=== PATIENT | female | born 1965 | race Caucasian/White ===

== ENCOUNTER → 2017-12-26 09:37 | Outpatient (CLI) | payer OTHER, SELFPAY ==
--- NOTE | 2017-12-26 | DI.MG.S_ITS ---
BILATERAL DIGITAL SCREENING MAMMOGRAM 3D/2D WITH CAD: 12/26/2017 CLINICAL: Routine screening. Family history of breast cancer. Comparison is made to exams dated: 10/21/2016 mammogram, 10/05/2015 mammogram, and 08/10/2014 mammogram - [facility]. The tissue of both breasts is heterogeneously dense. This may lower the sensitivity of mammography. Current study was also evaluated with a Computer Aided Detection (CAD) system. No significant masses, calcifications, or other findings are seen in either breast. There has been no significant interval change. IMPRESSION: NEGATIVE There is no mammographic evidence of malignancy. A 1 year screening mammogram is recommended. This exam was interpreted at Station ID: [id number]. NOTE: For mammograms, a report in lay terms will be sent to the patient. Approximately 15% of breast malignancies will not be visualized mammographically. In the management of a palpable breast mass, a negative mammogram must not discourage biopsy of a clinically suspicious lesion. Electronically Signed By: Jen price/mike:12/26/2017 10:58:13 letter sent: Normal Exam ACR BI-RADS Category 1: Negative [id number]
== END ==
PROVIDERS: Visit Provider Family Medicine
DX: Z12.31 Encounter for screening mammogram for malignant neoplasm of breast (principal)
CPT/HCPCS: 77063; 77067

== ENCOUNTER → 2018-09-23 10:58 | Outpatient (CLI) | payer OTHER, SELFPAY ==
--- NOTE | 2018-10-10 08:37 | PM.CARDMON.1 ---
Weekend Caregiver Report Referral & Results Date Patient Seen: 09/23/18 Requesting provider: Lisandro Vicente Indication: Palpitations Duration of monitoring (days): 5 Diary information: There were no diary entries There 14 patient triggered events associated with sinus rhythm, PACs, PVCs, and an episode of SVT, however this was only 4 beats in duration Data: Minimum heart rate identified was 52 beats per minute at 03:51 on 09/24/2018 Maximum sinus heart rate was 153 beats per minute at 17:40 on 09/27/2018 Maximum overall heart rate was 156 beats per minute at 06:38 on 09/24/2018 associated with either SVT or accelerated atrial tachycardia that was 4 beats in duration and marked by patient Patient had 4 other runs of an SVT or atrial tachycardia the longest was 5 beats at a rate of 108 beats per minute suggesting atrial tachycardia rather than SVT Less than 1% of identified beats or either ventricular supraventricular ectopic in origin Impression: Essentially unremarkable surveillance monitor No clear etiology for reported symptoms of palpitations identified beyond simple PACs and PVCs. Patient may have some accelerated atrial rhythms as well as above. Clinical correlation suggested
--- NOTE | 2018-10-10 08:40 | P.HOLT.S_ITS ---
[facility]er [employer]ush Man Report Referral & Results Date Patient Seen: 09/23/18 Requesting provider: Lisandro Vicente Indication: Palpitations Duration of monitoring (days): 5 Diary information: There were no diary entries There 14 patient triggered events associated with sinus rhythm, PACs, PVCs, and an episode of SVT, however this was only 4 beats in duration Data: Minimum heart rate identified was 52 beats per minute at 03:51 on 09/24/2018 Maximum sinus heart rate was 153 beats per minute at 17:40 on 09/27/2018 Maximum overall heart rate was 156 beats per minute at 06:38 on 09/24/2018 associated with either SVT or accelerated atrial tachycardia that was 4 beats in duration and marked by patient Patient had 4 other runs of an SVT or atrial tachycardia the longest was 5 beats at a rate of 108 beats per minute suggesting atrial tachycardia rather than SVT Less than 1% of identified beats or either ventricular supraventricular ectopic in origin Impression: Essentially unremarkable quality assurance monitor body No clear etiology for reported symptoms of palpitations identified beyond simple PACs and PVCs. Patient may have some accelerated atrial rhythms as well as above. Clinical correlation suggested
== END ==
PROVIDERS: Visit Provider Family Medicine
DX: R00.2 Palpitations (principal)
CPT/HCPCS: 0296T; 0298T

== ENCOUNTER 2020-01-16 15:24 | Emergency (ER) | payer OTHER, SELFPAY ==
[2020-01-16 15:33] VITALS: BP 167/89; PULSE 92; RESP 18; TEMP 36.8; O2SAT 97; BMI 19.7
--- NOTE | 2020-01-16 15:37 | DI.RAD.S_ITS ---
PROCEDURE: XR KNEE LT 3V INDICATIONS: Knee pain TECHNIQUE: 3 views of the knee were acquired. COMPARISON: None. FINDINGS: Bones: No fractures or dislocations. No suspicious bony lesions. Mild tricompartmental periarticular osteophyte formation. Soft tissues: No joint effusion. No suspicious soft tissue calcifications. IMPRESSION: Osteoarthritis. No acute fracture. No osseous lesion. If symptoms and/or clinical suspicion for pathology persist, further assessment with repeat, or advanced imaging (e.g., CT, MRI, or bone scan) may be helpful for further assessment. Dictated by: Kelli Wong M.D. on 01/16/2020 at 15:53 Approved by: Kelli Wong M.D. on 01/16/2020 at 15:53
--- NOTE | 2020-01-16 17:07 | ED.LOWEXIN ---
HPI - Extremity Injury (Lower) <FRANKIE Escobar - Last Filed: 01/16/20 17:46> General Chief Complaint: Extremity Injury, Lower Stated Complaint: LEFT KNEE PAIN Time Seen by Provider: 01/16/20 16:27 Source: patient Mode of arrival: Ambulatory Limitations: no limitations History of Present Illness HPI Narrative: The patient is a 54-year-old female nonsmoker who states that she has history of injuries to bilateral knees who presents with a chief complaint of left knee pain. She states that she was crouching on Sunday and felt sudden pain in her left knee. She was crouching in order to do housework. She used some KT tape to help support her leg. She has not taken any Tylenol or Motrin. She states that she has history of injuries to both knees, though is unspecific and does not know what exact injury she has had. She states that she has a history of ?knee pain,but is not sure if she has had any specific injuries such as ACL etcetera. She denies any falls, states that started when she was crouched down on Sunday. New she stated she waited 5 days to come in as she thinks she needs an MRI, states that we which is taken x-ray. Related Data Previous Rx's Medication Instructions Recorded diclofenac sodium [Voltaren] 2 gram TOP QID PRN 7 Days #100 gram 01/16/20 lidocaine 1 patch TOP DAILY PRN #15 each 01/16/20 Allergies Allergy/AdvReac Type Severity Reaction Status Date / Time No Known Drug Allergies Allergy Verified 01/16/20 15:33 Review of Systems <FRANKIE Escobar - Last Filed: 01/16/20 17:46> Review of Systems Narrative: GENERAL: Denies chills, fatigue, malaise, fever, sweats. HEENT: Denies sinus pain, ear pain, sore throat, difficulty swallowing, dizziness. RESPIRATORY: Denies dyspnea, cough, wheezing, hemoptysis, sputum. CARDIOVASCULAR: Denies chest pain, palpitations, orthopnea, edema, GASTROINTESTINAL: Denies nausea, vomiting, abdominal pain, diarrhea, constipation, melena. : Denies dysuria, frequency, incontinence, hematuria, urinary retention. MUSCULOSKELETAL: See HPI SKIN: Denies rash, skin lesions, or other NEUROLOGIC: Denies weakness, headache, numbness, change in speech, confusion, seizures, incoordination. PSYCHIATRIC: No concerning psychosocial issues. 12 point review of systems is negative except for those stated above Patient History <FRANKIE Escobar - Last Filed: 01/16/20 17:46> Social History Smoking Status: Never smoker Smoking Status: Never smoker Substance Use Type: does not use Exam <FRANKIE Escobar - Last Filed: 01/16/20 17:46> Narrative Exam Narrative: GENERAL: This is a well-nourished, well-developed patient, no acute distress HEAD: Atraumatic. Normocephalic. No temporal or scalp tenderness. EYES: Pupils equal round and reactive. Extraocular motions intact. No scleral icterus. No injection or drainage. ENT: Nose without bleeding, purulent drainage or septal hematoma. Wearing mask. Airway patent. NECK: Trachea midline. No JVD or lymphadenopathy. Supple, nontender, no meningeal signs. CARDIOVASCULAR: Regular rate and rhythm RESPIRATORY: No cough. No increased respiratory effort. No accessory muscle use EXTREMITIES: Pain to palpation noted medial aspect left knee, positive pedal pulses bilaterally. Able to fully flex and extend left knee, able to lift left leg off stretcher. Negative anterior posterior drawer. No instability felt on varus or valgus. No catching on Chad's. Slight swelling noted on medial aspect of left knee. NEURO: AOx3. SKIN: No rash or erythema on visible skin. No erythema rash laceration or abrasion noted on left knee Initial Vital Signs Initial Vital Signs: Vital Signs Temperature 98.2 F 01/16/20 15:33 Pulse Rate 92 H 01/16/20 15:33 Respiratory Rate 18 01/16/20 15:33 Blood Pressure 167/89 H 01/16/20 15:33 Pulse Oximetry 97 01/16/20 15:33 <Love Orlando DO - Last Filed: 01/21/20 07:28> Initial Vital Signs Initial Vital Signs: Vital Signs Temperature 98.2 F 01/16/20 15:33 Pulse Rate 92 H 01/16/20 15:33 Respiratory Rate 18 01/16/20 15:33 Blood Pressure 167/89 H 01/16/20 15:33 Pulse Oximetry 97 01/16/20 15:33 Scores <FRANKIE Escobar - Last Filed: 01/16/20 17:46> GCS [place] coma scale eye opening: Spontaneous [place] coma scale verbal response: Orientated Laura coma scale motor response: Obey commands [place] coma scale total score: 15 Course <FRANKIE Escobar - Last Filed: 01/16/20 17:46> Orders Ordered: Discontinued Medications Lidocaine (Lidoderm) 1 each TOP NOW ONE Stop: 01/16/20 16:46 Last Admin: 01/16/20 17:13 Dose: 1 each Documented by: JUN Vital Signs Vital signs: Vital Signs - 8 hr 01/16/20 15:33 Temperature 98.2 F Pulse Rate 92 H Respiratory Rate 18 Blood Pressure 167/89 H Pulse Oximetry 97 <Love Orlando DO - Last Filed: 01/21/20 07:28> Orders Ordered: Discontinued Medications Lidocaine (Lidoderm) 1 each TOP NOW ONE Stop: 01/16/20 16:46 Last Admin: 01/16/20 17:13 Dose: 1 each Documented by: JUN Vital Signs Vital signs: Vital Signs - 8 hr 01/16/20 15:33 Temperature 98.2 F Pulse Rate 92 H Respiratory Rate 18 Blood Pressure 167/89 H Pulse Oximetry 97 MDM - Extremity Injury (Lower) <FRANKIE Escobar - Last Filed: 01/16/20 17:46> Imaging Data Extremity x-ray #1: Radiologist's Impression: [address] [place] [address] XRay Report Signed Patient: Mandy Blue EMR#: [id number] : 1965Acct:[id number] Age/Sex: 54 / FDate of Service: 01/16/20 Loc: ED Accession Number: [id number] Procedure: XR knee LT 3V Ordering Provider: Love Orlando D.O. PROCEDURE: XR KNEE LT 3V INDICATIONS: Knee pain TECHNIQUE: 3 views of the knee were acquired. COMPARISON: None. FINDINGS: Bones: No fractures or dislocations. No suspicious bony lesions. Mild tricompartmental periarticular osteophyte formation. Soft tissues: No joint effusion. No suspicious soft tissue calcifications. IMPRESSION: Osteoarthritis. No acute fracture. No osseous lesion. If symptoms and/or clinical suspicion for pathology persist, further assessment with repeat, or advanced imaging (e.g., CT, MRI, or bone scan) may be helpful for further assessment. Dictated by: Kelli Wong M.D. on 01/16/2020 at 15:53 Approved by: Kelli Wong M.D. on 01/16/2020 at 15:53 [facility] Narrative Medical decision making narrative: The patient is a 54-year-old female who presents with a chief complaint of left-sided knee pain since Sunday. She states she was crouched down, felt knee pain. She has negative x-rays, is neurovascularly intact. The patient has not taken any Tylenol, states that she does not want to ?take pain pills.I encouraged her to take Tylenol, as patient states that she has medication if she takes Motrin so we agreed to try Voltaren gel. I also sent a prescription of lidocaine patches in. Encouraged follow-up with primary care provider which she already has scheduled. She is neurovascularly intact throughout her stay in the emergency department. The patient may benefit from physical therapy given osteoarthritis on x-ray, may benefit from further imaging such as MRI. The patient appears to be discouraged that I cannot do a extremity MRI in the emergency department, encouraged to follow up with primary care provider in the next few days. I discussed that I cannot guarantee that on MRI with deep be done as she would need to have a repeat evaluation. The patient may benefit from further imaging given her chronic knee pain, would also benefit from physical therapy, possibly orthopedic referral. Patient has no questions or concerns upon discharge and states understanding return precautions as well as follow-up care. Discharge Plan Departure Patient Disposition: Home Clinical Impression: Acute knee pain Qualifiers: Laterality: left Qualified Code(s): M25.562 - Pain in left knee Discharge Date/Time: 01/16/20 17:42 Instructions: How To Perform RICE (Rest, Ice, Compress, Elevate), DI for Knee Pain, How to Apply an Elastic Wrap on Knee Activity Restrictions/Additional Instructions: As I discussed, your x-ray shows no acute fracture. This does not rule out a soft tissue injury such as a ligament or tendon injury. It is important that you follow up with primary care provider, especially if worsening or no improvement. There can be fractures that did not show up on initial x-ray. As discussed, please follow-up with primary care provider in the next few days. I believe that you would likely benefit from further evaluation, likely physical therapy, further imaging such as MRI and orthopedic referral I suggest continued rest ice compression elevation as well as [id number] pain medications as needed and able Please come back to emergency department for any acute concerns Prescriptions: New lidocaine 5 % adhesive patch,medicated 1 patch TOP DAILY PRN (Reason: pain) Qty: 15 RF: 0 diclofenac sodium [Voltaren] 1 % gel 2 gram TOP QID PRN (Reason: pain ) 7 Days Qty: 100 RF: 0 Referrals: Smiley King DO [Non-Staff] - <Love Orlando DO - Last Filed: 01/21/20 07:28> Cosign ED Attending Cosignature Attestation: I was immediately available in the department for consultation. Documentation has been reviewed. I agree with assessment and plan.
[2020-01-16] MEDS: LIDOCAINE PATCH 1 EACH ADH..PATCH TOP (17:13)
== END 2020-01-16 17:42 | disposition home or self-care (01) ==
PROVIDERS: Emergency Provider Nurse Practitioner Family
DX: M25.562 Pain in left knee (principal)
CPT/HCPCS: 73562; 99282; 99283

== ENCOUNTER 2022-06-24 20:58 | Emergency (ER) | payer OTHER, SELFPAY ==
[2022-06-24 21:01] VITALS: BP 206/90; PULSE 105; RESP 18; TEMP 37; O2SAT 99; BMI 19.7
[2022-06-24] MEDS: ONDANSETRON 4 MG/2 ML INJ IV (21:07)
[2022-06-24 21:51] LABS: Add Manual Diff / Slide Review NO; Basophils Absolute Auto 100 /uL (0-100); Basophils Percent Auto 0.9 % (0-2); Eosinophils Absolute Auto 200 /uL (0-450); Eosinophils Percent Auto 3.5 % (2-4); Hematocrit 32.2 % (36-46); Hemoglobin 11.6 g/dL (12.0-16.0); Lymphocytes Absolute Auto 1500 /uL (1100-4500); Lymphocytes Percent Auto 25.7 % (25-40); Mean Corpuscular Hemoglobin 31.2 PG (26-34); Mean Corpuscular Volume 86.6 fL (80-100); Monocytes Absolute Auto 300 /uL (0-900); Monocytes Percent Auto 5.3 % (3-14); Neutrophils Absolute Auto 3700 /uL (1500-7000); Neutrophils Percent Auto 64.6 % (50-75); Platelet Count 227 X10^3/uL (150-400); Red Blood Cell Count 3.72 X10^6/uL (4.0-5.2); Red Cell Distribution Width 13.4 % (11.6-14.8); White Blood Cell Count 5.7 X10^3/uL (4.5-11.0)
--- NOTE | 2022-06-24 21:59 | DI.CT.S_ITS ---
PROCEDURE: CT KIDNEY URETER BLADDER (KUB) INDICATIONS: flank pain, hematuria TECHNIQUE: Axial sections were acquired from the lung bases to the pubic symphysis. Coronal and sagittal reformats were performed. For radiation dose reduction, the following was used: automated exposure control, adjustment of mA and/or kV according to patient size. COMPARISON: None. FINDINGS: Image quality: Excellent. Lung bases: Unremarkable. Heart: No significant findings. URINARY: Right Kidney: No stones or hydronephrosis. Right Ureter: No hydroureter. Left Kidney: A 2 x 3 mm mid kidney collecting system calculus is nonobstructive but there is moderate generalized left-sided hydronephrosis. Left Ureter: Hydroureter on the left extends from the renal pelvis to the middle 3rd of the left ureter where an impacted 5 x 6 mm calculus measuring 1016 Hounsfield units is present. This is located approximately at the level of the left iliac crest. No additional calculus more inferiorly is seen. Bladder: Normal wall thickness. No stones. ABDOMEN: Liver: Unremarkable. Gallbladder: Unremarkable. Biliary ducts: Unremarkable. Pancreas: Unremarkable. Spleen: Unremarkable. Adrenal Glands: Unremarkable. Stomach and Bowel: Stomach, small bowel loops, and colon are unremarkable. Peritoneum: No abnormal intraperitoneal fluid. No free air. Ventral Wall: No hernia. Abdominal Nodes: No enlarged retroperitoneal or mesenteric lymph nodes. Vessels: Aorta and inferior vena cava are normal in size. PELVIS: Pelvic Organs: Unremarkable. Pelvic Nodes: Unremarkable. Miscellaneous: No inguinal hernias are seen. Bones: Unremarkable. IMPRESSION: 5 x 6 mm impacted high density left middle 3rd ureteral stone causing moderate hydronephrosis and hydroureter to that level. An additional left-sided urinary tract stone is present measuring only 2 x 3 mm within the collecting system of the left kidney, which itself is nonobstructive. Dictated by: Chandu Moscoso M.D. on 06/24/2022 at 22:27 Approved by: Chandu Moscoso M.D. on 06/24/2022 at 22:31
[2022-06-24 22:00] LABS: Alanine Aminotransferase 28 IU/L (<35); Albumin 4.7 g/dL (3.5-5.0); Albumin Globulin Ratio 1.6 (1.0-2.8); Alkaline Phosphatase 75 U/L (38-126); Aspartate Aminotransferase 33 IU/L (14-36); BUN Creatinine Ratio 27.1 (6-22); Bilirubin Total 0.6 mg/dL (0.2-1.3); Blood Urea Nitrogen 19 mg/dL (7-17); Calcium 9.2 mg/dL (8.4-10.2); Carbon Dioxide 26 mmol/L (22-32); Chloride 104 mmol/L (98-107); Estimated Glomerular Filt Rate > 60 mL/min (>60); Glucose 126 mg/dL (70-100); HEMOLYSIS < 15 (0-50); Lipase 198 U/L (23-300); Potassium 3.2 mmol/L (3.4-5.1); Sodium 141 mmol/L (137-145); Total Protein 7.7 g/dL (6.3-8.2)
[2022-06-24] MEDS: KETOROLAC 30 MG/ML VIAL 15 MG IV (22:03)
--- NOTE | 2022-06-24 22:27 | ED_ITS ---
HPI - Abdominal Pain General Chief Complaint: Abdominal Pain Stated Complaint: pain in lt side back, vomiting,bloated abd Time Seen by Provider: 06/24/22 21:04 Source: patient Mode of arrival: Ambulatory History of Present Illness HPI narrative: 57-year-old female nonsmoker with noncontributory medical history presents with her in the chief complaint of a relatively sudden onset left side back pain over the course of the day. It came on suddenly and has started radiating around her left flank. She states there is no obvious provocation or palliation of her pain and it seems to come in waves without any rhyme or reason. She is had associated nausea and vomiting that seemed to be associated with intensity of pain. She denies any fever or chills. She is not dizzy nor weak or lightheaded and denies chest pain, shortness of breath or cough. She denies any change in bowel habits such as constipation or diarrhea and has no obvious dysuria, frequency or urgency Related Data Previous Rx's Medication Instructions Recorded lidocaine 5 % topical patch 1 patch topical DAILY PRN pain #15 01/16/20 ea hydrocodone 5 mg-acetaminophen 325 1 tab PO Q4-6H PRN pain #10 tabs 06/24/22 mg tablet ketorolac 10 mg tablet 10 mg PO Q6H PRN pain #14 tabs 06/24/22 ondansetron 4 mg disintegrating 4 mg PO TID-QID PRN nausea and 06/24/22 tablet vomiting #10 tabs tamsulosin 0.4 mg capsule (Flomax) 0.4 mg PO DAILY #30 caps 06/24/22 Allergies Allergy/AdvReac Type Severity Reaction Status Date / Time No Known Drug Allergies Allergy Verified 01/16/20 15:33 Review of Systems Review of Systems Narrative: GENERAL: Denies chills, fatigue, malaise, fever, sweats. HEENT: Denies sinus pain, ear pain, sore throat, difficulty swallowing, dizziness. RESPIRATORY: Denies dyspnea, cough, wheezing, hemoptysis, sputum. CARDIOVASCULAR: Denies chest pain, palpitations, orthopnea, edema, GASTROINTESTINAL: Denies nausea, vomiting, abdominal pain, diarrhea, constipation, melena. : See HPI MUSCULOSKELETAL: denies weakness, joint pain, or bony pain SKIN: Denies rash, skin lesions, or other NEUROLOGIC: Denies weakness, headache, numbness, change in speech, confusion, seizures, incoordination. PSYCHIATRIC: No concerning psychosocial issues. 12 point review of systems is negative except for those stated above Patient History Social History Smoking Status: Never smoker Smoking Status: Never smoker Substance Use Type: does not use Exam Narrative Exam Narrative: GENERAL: [57] year old patient appears stated age. Well-developed patient, in obvious significant pain, pacing and writhing HEAD: Atraumatic. Normocephalic. EYES: Pupils equal round and reactive. Extraocular motions intact. No scleral icterus. No injection or drainage. ENT: Nose without bleeding, purulent drainage. Throat without erythema, tonsillar hypertrophy or exudate. Airway patent. NECK: Trachea midline. Non tender CARDIOVASCULAR: Regular rate and rhythm without murmurs, gallops, or rubs. RESPIRATORY: Clear to auscultation. Breath sounds equal bilaterally. No wheezes, rales, or rhonchi. GASTROINTESTINAL: Abdomen soft, non-tender, nondistended. EXTREMITIES: No edema or joint tenderness. BACK: Nontender without deformity or crepitance. No flank tenderness. NEURO: AOx3. SKIN: No rash or erythema of visible areas Initial Vital Signs Initial Vital Signs: Vital Signs Temperature 98.6 F 06/24/22 21:01 Pulse Rate 105 H 06/24/22 21:01 Respiratory Rate 18 06/24/22 21:01 Blood Pressure 206/90 H 06/24/22 21:01 Pulse Oximetry 99 06/24/22 21:01 Oxygen Delivery Method 06/24/22 21:01 Course Orders Ordered: Discontinued Medications Hydrocodone Bitart/Acetaminophen (Hydrocodone/Acet 5/325 Prepack) 1 bottle MISC SEEINSTR ONE Stop: 06/24/22 22:53 Last Admin: 06/24/22 23:19 Dose: 1 bottle Documented By: ALBERTO Hydromorphone HCl (Hydromorphone 0.5 Mg Inj) 0.5 mg IV NOW ONE Stop: 06/24/22 22:19 Last Admin: 06/24/22 22:30 Dose: 0.5 mg Documented By: RACHEL Sodium Chloride (Normal Saline 0.9%) 1,000 mls @ 1,000 mls/hr IV BOLUS ONE Stop: 06/24/22 23:15 Last Infusion: 06/24/22 23:27 Dose: 0 mls/hr Documented By: Admin: 06/24/22 22:30 Dose: 1,000 mls/hr Documented By: RACHEL Ketorolac Tromethamine (Ketorolac 30 Mg/Ml Vial) 15 mg IV NOW ONE Stop: 06/24/22 22:00 Last Admin: 06/24/22 22:03 Dose: 15 mg Documented By: ALBERTO Ondansetron HCl (Ondansetron 4 Mg/2 Ml Inj) 4 mg IV NOW PRN PRN Reason: Nausea And Vomiting Last Admin: 06/24/22 21:07 Dose: 4 mg Documented By: ALBERTO Ondansetron HCl (Ondansetron 4 Mg Odt) 4 mg SL NOW ONE Stop: 06/24/22 22:53 Last Admin: 06/24/22 23:19 Dose: 4 mg Documented By: ALBERTO Reevaluation(s) Reevaluation #1: Patient does have some improvement with Toradol, however as the pain comes back she requests additional medications at which point Dilaudid has added Vital Signs Vital signs: Vital Signs - 8 hr 06/24/22 21:01 Temperature 98.6 F Pulse Rate 105 H Respiratory Rate 18 Blood Pressure 206/90 H Pulse Oximetry 99 Oxygen Delivery Method Room Air MDM - Abdominal Pain Lab Data Result diagrams: 06/24/22 21:22 06/24/22 21:22 Labs: Lab Results 06/24/22 06/24/22 06/24/22 Range/Units 21:22 21:22 21:35 WBC 5.7 (4.5-11.0) X10^3/uL RBC 3.72 L (4.0-5.2) X10^6/uL Hgb 11.6 L (12.0-16.0) g/dL Hct 32.2 L (36-46) % MCV 86.6 (80-100) fL MCH 31.2 (26-34) PG MCHC 36.0 (30-36) % RDW 13.4 (11.6-14.8) % Plt Count 227 (150-400) X10^3/uL Neut % (Auto) 64.6 (50-75) % Lymph % (Auto) 25.7 (25-40) % [place] % (Auto) 5.3 (3-14) % Eos % (Auto) 3.5 (2-4) % Baso % (Auto) 0.9 (0-2) % Neut # (Auto) 3700 (2401-0509) /uL Lymph # (Auto) 1500 (8656-8964) /uL [place] # (Auto) 300 (0-900) /uL Eos # (Auto) 200 (0-450) /uL Baso # (Auto) 100 (0-100) /uL Sodium 141 (137-145) mmol/L Potassium 3.2 L (3.4-5.1) mmol/L Chloride 104 (98-107) mmol/L Carbon Dioxide 26 (22-32) mmol/L BUN 19 H (7-17) mg/dL Creatinine 0.70 (0.52-1.04) mg/dL Estimated GFR > 60 (>60) mL/min BUN/Creatinine Ratio 27.1 H (6-22) Glucose 126 H (70-100) mg/dL Calcium 9.2 (8.4-10.2) mg/dL Total Bilirubin 0.6 (0.2-1.3) mg/dL AST 33 (14-36) IU/L ALT 28 (<35) IU/L Alkaline Phosphatase 75 (38-126) U/L Total Protein 7.7 (6.3-8.2) g/dL Albumin 4.7 (3.5-5.0) g/dL Globulin 3.0 (1.7-4.1) g/dL Albumin/Globulin Ratio 1.6 (1.0-2.8) Lipase 198 (23-300) U/L Urine RBC 1-5/hpf (0-5/HPF) Urine WBC None seen (0-5/HPF) Amorphous Sediment 4+ Urine Bacteria None seen (None) Ur Culture Indicated? Cult not indicated Point of care testing: Urine Dip Bedside Urine Glucose Negative Bedside Urine Bilirubin - Negative Bedside Urine Ketone - Negative Urine Specific [place] 1.015 Bedside Urine Occult Blood ++ Bedside Urine pH 7 Bedside Urine Protein - Negative Bedside Urine Urobilinogen - Negative Bedside Urine Nitrite - Negative Bedside Urine Leukocytes - Negative Esterase MDM Narrative Medical decision making narrative: [57 female with sudden onset colicky left flank pain] Multiple etiologies for patient's symptoms considered including, but not limited to: [Kidney stone, pyelonephritis, musculoskeletal, bowel obstruction versus other] Prior Charts reviewed: Including prior emergency department visit for knee pain Labs reviewed and interpreted by myself: Largely reassuring and absent of any signs of sepsis. No elevated white blood cell count or significant left shift. She does have a very slight decrease in potassium. No evidence of renal failure or signs of infection in the urine. Imaging reviewed: 5 x 6 mm stone in the mid ureter with signs of hydronephrosis Patient presents with rather classic signs of kidney stone, she has significant if not complete resolution of symptoms with above-stated therapies. She has no signs of sepsis, pain is well controlled, she is tolerating orals, shows no sign of infection or alteration in kidney function. Patient's symptoms improved over duration of stay with above-stated therapies. Findings and discharge diagnosis discussed with patient/family followed by verbalization of understanding Return precautions discussed with patient/family whom verbalize understanding of diagnosis and plan Discharge Plan Departure Patient Disposition: Home Clinical Impression: Calculus, kidney Instructions: DI for Kidney Stones Activity Restrictions/Additional Instructions: *You have been diagnosed with [left-sided kidney stone with hydronephrosis] *What to do: *Please continue to take your regular medications as directed. [x ] New medication prescriptions sent to your pharmacy: [[facility] in [place] ] [ ] New medication written as a paper prescription [ ] No new medications given *Please follow up with your primary care provider in 2-3 days, call for an appointment. Let them know you were seen in the Emergency Department and that we ask that you be seen in follow up. We will electronically transmit a record of today's note if your PCP is in our system as we discussed I have also given you contact information for * as we have discussed I have also given you contact information for local Urology and have electronically transmitted a copy of today's note. Please call their office, let them know you were seen in the emergency department and that we would like you seen in follow-up *If you do not have a primary care provider please contact the [facility] Resource line at [phone]. They will ask some questions about your medical history and help get you set up with a doctor in the community. *Return to Emergency Department if you should have any new, worsening or concerning symptoms, such as [fever greater than 101 F, shaking chills, worsening pain, persistent vomiting or other bothersome symptoms] Prescriptions: New hydrocodone-acetaminophen 5-325 mg tablet 1 tab PO Q4-6H PRN (Reason: pain) Qty: 10 0RF ketorolac 10 mg tablet 10 mg PO Q6H PRN (Reason: pain) Qty: 14 0RF tamsulosin [Flomax] 0.4 mg capsule 0.4 mg PO DAILY Qty: 30 0RF ondansetron 4 mg tablet,disintegrating 4 mg PO TID-QID PRN (Reason: nausea and vomiting) Qty: 10 0RF No Action lidocaine 5 % adhesive patch,medicated 1 patch TOP DAILY PRN (Reason: pain) Qty: 15 0RF Rx Instructions: leave on most painful area for up to 12 hrs Referrals: Adán Agustin MD [Physician] - Stand Alone Forms: Patient Portal/API
[2022-06-24] MEDS: HYDROMORPHONE 0.5 MG INJ IV (22:30)
[2022-06-24] MEDS: SODIUM CHLORIDE 0.9% 1,000 ML 1000 ML IV (22:30)
[2022-06-24 22:32] VITALS: PULSE 79; O2SAT 99
[2022-06-24 22:49] LABS: Amorphous Sediment Urine 4+; Bacteria Urine None Seen; Culture Indicated Urine Cult Not Indicated; RBC Urine 1-5/HPF (0-5/HPF); WBC Urine None Seen (0-5/HPF)
[2022-06-24 22:50] VITALS: BP 176/82; PULSE 82; O2SAT 100
[2022-06-24 22:53] VITALS: BP 142/78; PULSE 85; RESP 16; O2SAT 99
[2022-06-24 23:00] VITALS: BP 155/76; PULSE 79; O2SAT 100
[2022-06-24] MEDS: ONDANSETRON 4 MG ODT SL (23:19)
[2022-06-24] MEDS: HYDROCODONE/ACET 5/325 PREPACK 1 BOTTLE MISC (23:19)
== END 2022-06-24 23:30 | disposition home or self-care (01) ==
PROVIDERS: Emergency Provider Emergency Medicine
DX: N20.0 Calculus of kidney (principal)
CPT/HCPCS: 36415; 74176; 80053; 81003; 81015; 83690; 85025; 96361; 96374; 96375; 99284; J1170; J1885; J2405

== ENCOUNTER → 2023-04-30 10:24 | Outpatient (CLI) | payer OTHER, SELFPAY ==
[2023-04-30 11:55] LABS: TSH w/ Reflex to FT4 2.19 uIU/mL (0.47-4.68)
== END ==
PROVIDERS: Referring Provider Physician Assistant Medical; Visit Provider Physician Assistant Medical
DX: R53.83 Other fatigue (principal); R68.89 Other general symptoms and signs
CPT/HCPCS: 36415; 84443

== ENCOUNTER 2023-08-08 09:00 | Emergency (ER) | payer OTHER, SELFPAY ==
[2023-08-08] VITALS (13 sets, daily range): BP systolic 132–191; BP diastolic 66–94; PULSE 76–98; RESP 14–23; TEMP 36.6; O2SAT 99–100; BMI 19.8
[2023-08-08] MEDS: ONDANSETRON 4 MG/2 ML INJ IV (09:30)
[2023-08-08 09:50] LABS: Alanine Aminotransferase 23 IU/L (<35); Albumin 4.7 g/dL (3.5-5.0); Albumin Globulin Ratio 1.5 (1.0-2.8); Alkaline Phosphatase 70 U/L (38-126); Aspartate Aminotransferase 30 IU/L (14-36); BUN Creatinine Ratio 14.1 (6-22); Blood Urea Nitrogen 9 mg/dL (7-17); Calcium 9.3 mg/dL (8.4-10.2); Carbon Dioxide 26 mmol/L (22-32); Chloride 103 mmol/L (98-107); Estimated Glomerular Filt Rate > 60 mL/min (>60); Globulin 3.1 g/dL (1.7-4.1); Glucose 103 mg/dL (80-110); HEMOLYSIS < 15 (0-50); Lipase 155 U/L (23-300); Potassium 3.4 mmol/L (3.4-5.1); Sodium 139 mmol/L (137-145); Total Protein 7.8 g/dL (6.3-8.2)
[2023-08-08 09:52] LABS: Bacteria Urine None Seen; RBC Urine 10-30/HPF (0-5/HPF); Squamous Epithelial Cell Urine 1-5 /HPF (0-5/HPF); Urine Volume 10mL (spun); WBC Urine None Seen (0-5/HPF)
[2023-08-08 09:53] LABS: Culture Indicated Urine Cult Not Indicated
[2023-08-08 09:59] LABS: Add Manual Diff / Slide Review NO; Basophils Absolute Auto 100 /uL (0-100); Eosinophils Absolute Auto 200 /uL (0-450); Eosinophils Percent Auto 3.2 % (2-4); Hematocrit 34.4 % (36-46); Hemoglobin 12.5 g/dL (12.0-16.0); Lymphocytes Absolute Auto 1100 /uL (1100-4500); Mean Corpuscular HGB Conc 36.2 % (30-36); Mean Corpuscular Hemoglobin 31.1 PG (26-34); Mean Corpuscular Volume 85.7 fL (80-100); Monocytes Absolute Auto 300 /uL (0-900); Monocytes Percent Auto 6.7 % (3-14); Neutrophils Absolute Auto 3300 /uL (1500-7000); Neutrophils Percent Auto 66.1 % (50-75); Platelet Count 250 X10^3/uL (150-400); Red Blood Cell Count 4.01 X10^6/uL (4.0-5.2); Red Cell Distribution Width 13.2 % (11.6-14.8); White Blood Cell Count 4.9 X10^3/uL (4.5-11.0)
--- NOTE | 2023-08-08 11:32 | DI.CT.S_ITS ---
PROCEDURE: CT KIDNEY URETER BLADDER (KUB) INDICATIONS: left flank pain TECHNIQUE: Axial sections were acquired from the lung bases to the pubic symphysis. Coronal and sagittal reformats were performed. For radiation dose reduction, the following was used: automated exposure control, adjustment of mA and/or kV according to patient size. COMPARISON: [facility], CT, CT KIDNEY URETER BLADDER (KUB), 06/24/2022, 22:07. FINDINGS: Image quality: Diagnostic. Lower Chest: No significant findings. URINARY: Right Kidney: No stones or hydronephrosis. Right Ureter: No hydroureter. Left Kidney: There is moderate left hydronephrosis, as before. Nonobstructing 3 mm calculus within the left interpolar kidney is present, as before. Left Ureter: Mild diffuse left ureteral dilatation is present. There is a distal left ureteral calculus measuring 6 mm and 162 Hounsfield units. Bladder: Normal wall thickness. No stones. ABDOMEN: Liver: No contour-deforming solid mass. Gallbladder: No radiopaque gallstones or wall thickening. Biliary ducts: No biliary dilation. Pancreas: No ductal dilation. Spleen: Size is within normal limits. Adrenal Glands: No adrenal nodules. Stomach and Bowel: Normal colonic caliber, without significant wall thickening. Appendix is not seen. No evidence of appendicitis. Peritoneum: No abnormal intraperitoneal fluid. No free air. Ventral Wall: No hernia. Abdominal Nodes: No enlarged retroperitoneal or mesenteric lymph nodes. Vessels: Aorta and inferior vena cava are normal in size. PELVIS: Pelvic Organs: Unremarkable. Pelvic Nodes: Unremarkable. Miscellaneous: No inguinal hernias are seen. Bones: Unremarkable. IMPRESSION: 1. Migration of calculus to distal left ureter associated with mild left hydronephrosis. 2. Nonobstructing left renal calculus. 3. Appendix not seen. No evidence of appendicitis. Dictated by: Kelli Wong M.D. on 08/08/2023 at 12:39 Approved by: Kelli Wong M.D. on 08/08/2023 at 12:42
[2023-08-08] MEDS: HYDROMORPHONE 0.5 MG INJ IV ×2 (11:35→13:33)
[2023-08-08] MEDS: KETOROLAC 30 MG/ML VIAL 15 MG IV (11:35)
--- NOTE | 2023-08-08 12:04 | ED_ITS ---
HPI - Abdominal Pain General Chief Complaint: Abdominal Pain Stated Complaint: L side abd/back pain Time Seen by Provider: 08/08/23 10:09 Source: patient Mode of arrival: Ambulatory History of Present Illness HPI narrative: Patient 58-year-old female history of IBS, kidney stones presenting today with left-sided flank pain. Reports that it started getting much worse this morning. Feeling nauseous. She has had some left lower abdominal pain ongoing for about a year since her last kidney stone but it has been intensifying since her flank pain started. She has since received Toradol and Dilaudid in his overall feeling much better. She denies any fever chills nausea or vomiting. Related Data Home Medications Medication Instructions Recorded Confirmed Saccharomyces boulardii 250 mg 250 mg PO DAILY 03/08/23 04/30/23 capsule (Daily Probiotic (S. boulardii)) digestive enzymes 1 cap PO DAILY 03/08/23 04/30/23 glutamine 500 mg capsule 500 mg PO DAILY 03/08/23 04/30/23 (L-Glutamine) Previous Rx's Medication Instructions Recorded estradiol 0.01% (0.1 mg/gram) 0.5 appful vaginal DAILY #42.5 04/30/23 vaginal cream (Estrace) grams hydrocodone 5 mg-acetaminophen 325 1 tab PO Q6H PRN pain #20 tabs 08/08/23 mg tablet ketorolac 10 mg tablet 10 mg PO TID PRN pain #10 tabs 08/08/23 ondansetron 4 mg disintegrating 4 mg PO Q8H PRN nausea and 08/08/23 tablet vomiting #10 tabs tamsulosin 0.4 mg capsule (Flomax) 0.4 mg PO BEDTIME #10 caps 08/08/23 Allergies Allergy/AdvReac Type Severity Reaction Status Date / Time No Known Drug Allergies Allergy Verified 08/08/23 09:20 Patient History Medical History (Updated 08/08/23 @ 13:11 by Love Orlando DO) Cystocele with rectocele Deep dyspareunia Postmenopausal atrophic vaginitis Postmenopausal bleeding Hypertension Raynaud disease IBS (irritable bowel syndrome) Surgical History Hx of cataract surgery Hx of tonsillectomy Family History Mother Cancer Father Hypertension Stroke Heart disease Daughter Hypertension Stroke Heart disease Brother Hypertension Heart disease Son Hypertension Social History Smoking Status: Never smoker Smoking Status: Never smoker Substance Use Type: does not use Exam Initial Vital Signs Initial Vital Signs: Vital Signs Temperature 97.8 F 08/08/23 09:12 Pulse Rate 98 H 08/08/23 09:12 Respiratory Rate 18 08/08/23 09:12 Blood Pressure 191/91 H 08/08/23 09:12 Pulse Oximetry 100 08/08/23 09:12 Oxygen Delivery Method Room Air 08/08/23 09:12 GENERAL: Alert now well-appearing 58-year-old female and in no acute distress. HEENT: Head atraumatic,EOMI, pupils reactive, face symmetric, moist mucous membranes CARDIOVASCULAR: Regular rate and rhythm without murmurs, rubs or gallops. RESPIRATORY: Breath sounds equal bilaterally, no wheezes rales or rhonchi. ABDOMEN: Soft, minimally tender left lower quadrant no guarding no rebound no distress : left CVA tenderness EXTREMITIES: Normal range of motion, no clubbing or edema. Neurovascularly intact NEUROLOGICAL: Alert and oriented x4.Normal gait and speech. SKIN: Warm, dry, no laceration, no petechiae, no rashes or lesions. Course Orders Ordered: ED Orders 08/08/23 09:25 Complete Blood Count AUTO DIFF Stat Comprehensive Metabolic Panel Stat Lipase Stat 08/08/23 09:30 Urine Microscopic Stat 08/08/23 09:38 EKG-12 Lead Stat 08/08/23 11:32 CT kidney ureter bladder (KUB) Stat Discontinued Medications Hydromorphone HCl (Hydromorphone 0.5 Mg Inj) 0.5 mg IV NOW ONE Stop: 08/08/23 11:26 Last Admin: 08/08/23 11:35 Dose: 0.5 mg Documented By: ITA Hydromorphone HCl (Hydromorphone 0.5 Mg Inj) 0.5 mg IV NOW ONE Stop: 08/08/23 13:05 Last Admin: 08/08/23 13:33 Dose: 0.5 mg Documented By: ITA Ketorolac Tromethamine (Ketorolac 30 Mg/Ml Vial) 15 mg IV NOW ONE Stop: 08/08/23 11:26 Last Admin: 08/08/23 11:35 Dose: 15 mg Documented By: ITA Ondansetron HCl (Ondansetron 4 Mg/2 Ml Inj) 4 mg IV NOW PRN PRN Reason: Nausea And Vomiting Last Admin: 08/08/23 09:30 Dose: 4 mg Documented By: RB Ondansetron HCl (Ondansetron 4 Mg Odt) 4 mg PO NOW PRN PRN Reason: Nausea And Vomiting Vital Signs Vital signs: Vital Signs - 8 hr 08/08/23 09:12 08/08/23 11:15 08/08/23 11:18 Temperature 97.8 F Pulse Rate 98 H 94 H 87 Respiratory Rate 18 15 Blood Pressure 191/91 H Pulse Oximetry 100 100 100 Oxygen Delivery Method Room Air 08/08/23 11:18 08/08/23 11:30 08/08/23 11:30 Temperature Pulse Rate 87 Respiratory Rate 23 Blood Pressure 187/87 H 143/94 H Pulse Oximetry 100 Oxygen Delivery Method 08/08/23 11:39 08/08/23 11:39 08/08/23 11:45 Temperature Pulse Rate 81 76 Respiratory Rate 14 16 Blood Pressure 156/93 H Pulse Oximetry 100 100 Oxygen Delivery Method 08/08/23 11:45 08/08/23 11:58 08/08/23 11:58 Temperature Pulse Rate 83 Respiratory Rate 23 Blood Pressure 154/86 H 159/82 H Pulse Oximetry 100 Oxygen Delivery Method 08/08/23 12:00 08/08/23 12:00 08/08/23 12:15 Temperature Pulse Rate 78 Respiratory Rate 19 Blood Pressure 152/74 H 135/67 Pulse Oximetry 100 Oxygen Delivery Method 08/08/23 12:15 08/08/23 12:30 08/08/23 12:30 Temperature Pulse Rate 77 77 Respiratory Rate 14 15 Blood Pressure 132/66 Pulse Oximetry 99 100 Oxygen Delivery Method 08/08/23 12:45 08/08/23 12:45 08/08/23 13:00 Temperature Pulse Rate 76 87 Respiratory Rate 15 15 Blood Pressure 143/71 H Pulse Oximetry 100 99 Oxygen Delivery Method 08/08/23 13:00 08/08/23 13:15 08/08/23 13:15 Temperature Pulse Rate 76 Respiratory Rate 20 Blood Pressure 153/78 H 157/79 H Pulse Oximetry 100 Oxygen Delivery Method MDM - Abdominal Pain Lab Data 08/08/23 09:25 08/08/23 09:25 Labs: Lab Results 08/08/23 08/08/23 Range/Units 09:25 09:30 WBC 4.9 (4.5-11.0) X10^3/uL RBC 4.01 (4.0-5.2) X10^6/uL Hgb 12.5 (12.0-16.0) g/dL Hct 34.4 L (36-46) % MCV 85.7 (80-100) fL MCH 31.1 (26-34) PG MCHC 36.2 H (30-36) % RDW 13.2 (11.6-14.8) % Plt Count 250 (150-400) X10^3/uL Neut % (Auto) 66.1 (50-75) % Lymph % (Auto) 23.0 L (25-40) % [place] % (Auto) 6.7 (3-14) % Eos % (Auto) 3.2 (2-4) % Baso % (Auto) 1.0 (0-2) % Neut # (Auto) 3300 (5211-4512) /uL Lymph # (Auto) 1100 (7883-8951) /uL [place] # (Auto) 300 (0-900) /uL Eos # (Auto) 200 (0-450) /uL Baso # (Auto) 100 (0-100) /uL Sodium 139 (137-145) mmol/L Potassium 3.4 (3.4-5.1) mmol/L Chloride 103 (98-107) mmol/L Carbon Dioxide 26 (22-32) mmol/L BUN 9 (7-17) mg/dL Creatinine 0.64 (0.52-1.04) mg/dL Estimated GFR > 60 (>60) mL/min BUN/Creatinine Ratio 14.1 (6-22) Glucose 103 (80-110) mg/dL Calcium 9.3 (8.4-10.2) mg/dL Total Bilirubin 1.0 (0.2-1.3) mg/dL AST 30 (14-36) IU/L ALT 23 (<35) IU/L Alkaline Phosphatase 70 (38-126) U/L Total Protein 7.8 (6.3-8.2) g/dL Albumin 4.7 (3.5-5.0) g/dL Globulin 3.1 (1.7-4.1) g/dL Albumin/Globulin Ratio 1.5 (1.0-2.8) Lipase 155 (23-300) U/L Urine RBC 10-30/hpf H (0-5/HPF) Urine WBC None seen (0-5/HPF) Ur Squamous Epith Cells 1-5 /hpf (0-5/HPF) Urine Bacteria None seen (None) Ur Culture Indicated? Cult not indicated Vol Urine Centrifuged 10ml (spun) Point of care testing: Urine Dip Bedside Urine Glucose Negative Bedside Urine Bilirubin - Negative Bedside Urine Ketone - Negative Urine Specific [place] 1.025 Bedside Urine Occult Blood +++ Bedside Urine pH 5.5 Bedside Urine Protein - Negative Bedside Urine Urobilinogen - Negative Bedside Urine Nitrite - Negative Bedside Urine Leukocytes - Negative Esterase Imaging Data CT scan - abdomen/pelvis: Radiologist's Impression: PROCEDURE: CT KIDNEY URETER BLADDER (KUB) INDICATIONS: left flank pain TECHNIQUE: Axial sections were acquired from the lung bases to the pubic symphysis. Coronal and sagittal reformats were performed. For radiation dose reduction, the following was used: automated exposure control, adjustment of mA and/or kV according to patient size. COMPARISON: [facility], CT, CT KIDNEY URETER BLADDER (KUB), 06/24/2022, 22:07. FINDINGS: Image quality: Diagnostic. Lower Chest: No significant findings. URINARY: Right Kidney: No stones or hydronephrosis. Right Ureter: No hydroureter. Left Kidney: There is moderate left hydronephrosis, as before. Nonobstructing 3 mm calculus within the left interpolar kidney is present, as before. Left Ureter: Mild diffuse left ureteral dilatation is present. There is a distal left ureteral calculus measuring 6 mm and 162 Hounsfield units. Bladder: Normal wall thickness. No stones. ABDOMEN: Liver: No contour-deforming solid mass. Gallbladder: No radiopaque gallstones or wall thickening. Biliary ducts: No biliary dilation. Pancreas: No ductal dilation. Spleen: Size is within normal limits. Adrenal Glands: No adrenal nodules. Stomach and Bowel: Normal colonic caliber, without significant wall thickening. Appendix is not seen. No evidence of appendicitis. Peritoneum: No abnormal intraperitoneal fluid. No free air. Ventral Wall: No hernia. Abdominal Nodes: No enlarged retroperitoneal or mesenteric lymph nodes. Vessels: Aorta and inferior vena cava are normal in size. PELVIS: Pelvic Organs: Unremarkable. Pelvic Nodes: Unremarkable. Miscellaneous: No inguinal hernias are seen. Bones: Unremarkable. IMPRESSION: 1. Migration of calculus to distal left ureter associated with mild left hydronephrosis. 2. Nonobstructing left renal calculus. 3. Appendix not seen. No evidence of appendicitis. Dictated by: Kelli Wong M.D. on 08/08/2023 at 12:39 MDM Narrative Medical decision making narrative: Patient is 58-year-old female history of kidney stones and IV as presenting today with left-sided flank pain. She is got some left lower abdominal pain as well. Is doing much better after Dilaudid and Toradol Blood work has been reviewed no evidence of SABA or elevated WBC count. Urinalysis is clean without evidence of infection. CT does show 2 kidney stones 1 6 mm in the distal left ureter causing mild hydronephrosis and a 3 mm stone in the pole of the left kidney Patient is instructed to follow-up with urology given strict return precautions. All questions have been answered. She has previously had ketorolac at home for prior kidney stones is requesting an again. Discussed not combining it with Motrin. Initially forgot to send the ketorolac prescription but it was sent after discharge Discharge Plan Departure Patient Disposition: Home Clinical Impression: Kidney stone on left side Instructions: DI for Kidney Stones Activity Restrictions/Additional Instructions: *You have been diagnosed with left-sided kidney stone *What to do: At this time you have to kidney stones 1 in the kidney that is measuring 3 mm in 1 6 mm that is trying to pass. You will need to follow-up with urology. Please stay hydrated Strain your urine *Continue to take medications as directed Motrin 600 mg every 6 hours for [id number] pain Zofran 4 mg every 8 hours for nausea or vomiting Flomax 0.4 mg daily [place] 1-2 tablets every 6 hours if needed for severe *Follow up with your primary care provider in 2-3 days or call [phone] *Return to ER if you should have increasing pain, fever, vomiting or any new, worsening or concerning symptoms CONTROLLED SUBSTANCE DISCHARGE (Narcotoic/benzodiazepine/Flexeril/Phenergan) 1. You have been prescribed narcotic medications, it does have acetaminophen/Tylenol/paracetamol in it, DO NOT TAKE MORE THAN 4,00mg in 24 hours of Tylenol. TRAMADOL DOES NOT CONTAIN TYLENOL 2. Please understand that we cannot provide further refills of narcotics, benzodiazepines or controlled substances through the ED and her pain management will need to be through your provider. 3. While on these medications you cannot drive or operate heavy machinery. 4. You cannot sign legal documents or perform any duties such as this. 5. As long as you're taking opiate pain medications he should also be taking a stool softener such as Colace, Dulcolax, MiraLAX or prune juice, to help avoid constipation. Prescriptions: New hydrocodone-acetaminophen 5-325 mg tablet 1 tab PO Q6H PRN (Reason: pain) Qty: 20 0RF tamsulosin [Flomax] 0.4 mg capsule 0.4 mg PO BEDTIME Qty: 10 0RF ondansetron 4 mg tablet,disintegrating 4 mg PO Q8H PRN (Reason: nausea and vomiting) Qty: 10 0RF ketorolac 10 mg tablet 10 mg PO TID PRN (Reason: pain) Qty: 10 0RF No Action estradiol [Estrace] 0.01 % (0.1 mg/gram) cream 0.5 appful vaginal DAILY Qty: 42.5 3RF Rx Instructions: Apply daily for 14 days then twice weekly for maintenance L-Glutamine 500 mg capsule 500 mg PO DAILY Saccharomyces boulardii [Daily Probiotic (S. boulardii)] 250 mg capsule 250 mg PO DAILY digestive enzymes Capsule 1 cap PO DAILY Rx Instructions: administer with food; swallow whole; do not crush/chew/dissolve/break/cut Referrals: ProviderPietro [Primary Care Provider] - Stand Alone Forms: Patient Portal/API
== END 2023-08-08 13:41 | disposition home or self-care (01) ==
PROVIDERS: Emergency Provider Emergency Medicine
DX: N20.0 Calculus of kidney (principal)
CPT/HCPCS: 36415; 74176; 80053; 81003; 81015; 83690; 85025; 93005; 96374; 96375; 96376; 99284; J1170; J1885; J2405

== ENCOUNTER → 2023-09-27 12:43 | Outpatient (CLI) | payer OTHER, SELFPAY ==
--- NOTE | 2023-09-27 12:50 | DI.US.S_ITS ---
PROCEDURE: US PELVIC COMPLETE INDICATIONS: postmenopausal bleeding, dysparunia, bloating TECHNIQUE: Real-time scanning was performed of the pelvic organs, with image documentation. Additional endovaginal scanning was necessary due to incomplete visualization of the adnexal and endometrial structures by transabdominal scanning. COMPARISON: , CT, CT KIDNEY URETER BLADDER (KUB), 09/27/2023, 13:37. FINDINGS: Uterus: Uterus is anteverted and normal in size at 6.9 x 4.9 x 3.2 cm. The myometrium is homogeneous. The endometrium measures 4 mm combined thickness. No fibroids. Cervix is unremarkable. Ovaries: Right ovary is not seen. Left ovary measures 2.7 x 1.6 x 1.1 cm. Less than 12 ovarian follicles. No significant cyst. Other: No pathologic free abdominal or pelvic fluid. IMPRESSION: 1. Endometrium measures 4 mm. Upper limits of normal in this patient with postmenopausal bleeding. 2. Right ovary is not seen. Left ovary is within normal limits. We strive to produce accurate, complete, and clear reports of imaging services. To assist us in improving patient care, this report was composed using standard report templates and voice recognition software. Therefore, it may contain abnormal punctuation, insertions and/or omissions. Occasional wrong-word or sound-alike substitutions may occur. Though we review the report and make efforts to correct it, we do recommend that the report be read carefully in proper context to recognize any text inaccuracies. Dictated by: Phillip Ferrer M.D. on 09/27/2023 at 20:38 Approved by: Phillip Ferrer M.D. on 09/27/2023 at 20:39
--- NOTE | 2023-09-27 12:51 | DI.CT.S_ITS ---
PROCEDURE: CT KIDNEY URETER BLADDER (KUB) INDICATIONS: Postmenopausal bleeding; TECHNIQUE: Axial sections were acquired from the lung bases to the pubic symphysis. Coronal and sagittal reformats were performed. For radiation dose reduction, the following was used: automated exposure control, adjustment of mA and/or kV according to patient size. COMPARISON: [facility], CT, CT KIDNEY URETER BLADDER (KUB), 06/24/2022, 22:07. [facility], CT, CT KIDNEY URETER BLADDER (KUB), 08/08/2023, 11:52. FINDINGS: Image quality: Diagnostic. Lower Chest: No significant findings. URINARY: Right Kidney: No stones or hydronephrosis. Right Ureter: No hydroureter. Left Kidney: No hydronephrosis. Nonobstructing kidney stone measuring 0.2 cm, (2/30), unchanged. Left Ureter: No hydroureter. Bladder: Normal wall thickness. No stones. ABDOMEN: Liver: No contour-deforming solid mass. Probable cyst in the right liver. Gallbladder: No radiopaque gallstones or wall thickening. Biliary ducts: No biliary dilation. Pancreas: No ductal dilation. Spleen: Size is within normal limits. Adrenal Glands: No adrenal nodules. Stomach and Bowel: Normal colonic caliber, without significant wall thickening. Visualized portions of the appendix are not dilated. Peritoneum: No abnormal intraperitoneal fluid. No free air. Ventral Wall: No hernia. Abdominal Nodes: No enlarged retroperitoneal or mesenteric lymph nodes. Vessels: Aorta and inferior vena cava are normal in size. PELVIS: Pelvic Organs: Anteverted uterus, unchanged. Pelvic Nodes: Unremarkable. Miscellaneous: No inguinal hernias are seen. Bones: No suspicious osseous lesion. IMPRESSION: 1. Previously seen calculus at the left UVJ has passed. No convincing hydronephrosis. 2. Punctate nonobstructing left kidney stone is unchanged. 3. No bladder calculus. Dictated by: Phillip Ferrer M.D. on 09/27/2023 at 20:08 Approved by: Phillip Ferrer M.D. on 09/27/2023 at 20:18
== END ==
PROVIDERS: PCP Internal Medicine; Referring Provider Urology; Visit Provider Urology
DX: N20.0 Calculus of kidney (principal); N94.12 Deep dyspareunia; N95.0 Postmenopausal bleeding; R14.0 Abdominal distension (gaseous)
CPT/HCPCS: 74176; 76830; 76856

== ENCOUNTER 2023-10-20 08:40 | Emergency (ER) | payer OTHER, SELFPAY ==
[2023-10-20] VITALS (8 sets, daily range): BP systolic 136–196; BP diastolic 78–91; PULSE 74–87; RESP 14–21; TEMP 36.7; O2SAT 98–100; BMI 20.2
--- NOTE | 2023-10-20 09:21 | ED_ITS ---
HPI - Abdominal Pain General Chief Complaint: Abdominal Pain Stated Complaint: kidney stone causing pain Time Seen by Provider: 10/20/23 08:58 Source: patient and family Mode of arrival: Ambulatory History of Present Illness HPI narrative: Patient is a 58-year-old female history of kidney stones presenting today with left-sided flank pain. She reports that she recently had a CT scan and it did show a 2 mm stone previously she has passed a 6 mm stone. She feels it radiating around to her front feels nauseous. It started at 10:00 a.m.. Denies any painful frequent urination or fever. Related Data Home Medications Medication Instructions Recorded Confirmed Saccharomyces boulardii 250 mg 250 mg PO DAILY 03/08/23 04/30/23 capsule (Daily Probiotic (S. boulardii)) digestive enzymes 1 cap PO DAILY 03/08/23 04/30/23 glutamine 500 mg capsule 500 mg PO DAILY 03/08/23 04/30/23 (L-Glutamine) Previous Rx's Medication Instructions Recorded estradiol 0.01% (0.1 mg/gram) 0.5 appful vaginal DAILY #42.5 04/30/23 vaginal cream (Estrace) grams hydrocodone 5 mg-acetaminophen 325 1 tab PO Q6H PRN pain #20 tabs 08/08/23 mg tablet ketorolac 10 mg tablet 10 mg PO TID PRN pain #10 tabs 08/08/23 ondansetron 4 mg disintegrating 4 mg PO Q8H PRN nausea and 08/08/23 tablet vomiting #10 tabs tamsulosin 0.4 mg capsule (Flomax) 0.4 mg PO BEDTIME #10 caps 08/08/23 ondansetron 4 mg disintegrating 4 mg PO Q8H PRN nausea and 10/20/23 tablet vomiting #10 tabs oxycodone-acetaminophen 5 mg-325 1 tab PO Q6H PRN pain #10 tabs 10/20/23 mg tablet (Percocet) Allergies Allergy/AdvReac Type Severity Reaction Status Date / Time No Known Drug Allergies Allergy Verified 10/20/23 09:06 Patient History Medical History (Updated 10/20/23 @ 10:27 by Love Orlando DO) Cystocele with rectocele Deep dyspareunia Postmenopausal atrophic vaginitis Postmenopausal bleeding Hypertension Raynaud disease IBS (irritable bowel syndrome) Surgical History Hx of cataract surgery Hx of tonsillectomy Family History Mother Cancer Father Hypertension Stroke Heart disease Daughter Hypertension Stroke Heart disease Brother Hypertension Heart disease Son Hypertension Social History Smoking Status: Never smoker Smoking Status: Never smoker Substance Use Type: does not use Exam Initial Vital Signs Initial Vital Signs: Vital Signs Temperature 98.1 F 10/20/23 08:40 Pulse Rate 80 10/20/23 08:40 Respiratory Rate 16 10/20/23 08:40 Blood Pressure 196/91 H 10/20/23 08:40 Pulse Oximetry 100 10/20/23 08:40 Oxygen Delivery Method Room Air 10/20/23 08:40 GENERAL: Alert 58-year-old female appears and in no acute distress. HEENT: Head atraumatic,EOMI, pupils reactive, face symmetric, moist mucous membranes CARDIOVASCULAR: Regular rate and rhythm without murmurs, rubs or gallops. RESPIRATORY: Breath sounds equal bilaterally, no wheezes rales or rhonchi. ABDOMEN: Soft, nontender. Normoactive bowel sounds all 4 quadrants. No guarding or rebound. : Left CVA tenderness EXTREMITIES: Normal range of motion, no clubbing or edema. Neurovascularly intact NEUROLOGICAL: Alert and oriented x4 SKIN: Warm, dry, no laceration, no petechiae, no rashes or lesions. Course Orders Ordered: ED Orders 10/20/23 09:07 EKG-12 Lead Stat 10/20/23 09:18 Complete Blood Count AUTO DIFF Stat Comprehensive Metabolic Panel Stat Lipase Stat 10/20/23 09:31 CT kidney ureter bladder (KUB) Stat Discontinued Medications Hydromorphone HCl (Hydromorphone 0.5 Mg Inj) 0.5 mg IV NOW ONE Stop: 10/20/23 09:40 Last Admin: 10/20/23 09:54 Dose: 0.5 mg Documented By: BS Hydromorphone HCl (Hydromorphone 0.5 Mg Inj) 0.5 mg IV NOW ONE Stop: 10/20/23 10:30 Last Admin: 10/20/23 10:39 Dose: 0.5 mg Documented By: BLAIR Sodium Chloride (Normal Saline 0.9%) 1,000 mls @ 1,000 mls/hr IV BOLUS ONE Stop: 10/20/23 10:07 Last Infusion: 10/20/23 10:39 Dose: Infused Documented By: Admin: 10/20/23 09:28 Dose: 1,000 mls/hr Documented By: BLAIR Ketorolac Tromethamine (Ketorolac 30 Mg/Ml Vial) 15 mg IV NOW ONE Stop: 10/20/23 09:09 Last Admin: 10/20/23 09:29 Dose: 15 mg Documented By: BLAIR Ondansetron HCl (Ondansetron 4 Mg/2 Ml Inj) 4 mg IV NOW PRN PRN Reason: Nausea And Vomiting Last Admin: 10/20/23 09:28 Dose: 4 mg Documented By: BLAIR Vital Signs Vital signs: Vital Signs - 8 hr 10/20/23 08:40 10/20/23 08:49 10/20/23 08:50 Temperature 98.1 F Pulse Rate 80 87 84 Respiratory Rate 16 Blood Pressure 196/91 H Pulse Oximetry 100 100 100 Oxygen Delivery Method Room Air 10/20/23 08:50 10/20/23 09:00 10/20/23 09:00 Temperature Pulse Rate 80 Respiratory Rate Blood Pressure 196/91 H 179/88 H Pulse Oximetry 100 Oxygen Delivery Method 10/20/23 09:33 10/20/23 09:43 10/20/23 09:43 Temperature Pulse Rate 75 76 Respiratory Rate 21 Blood Pressure 161/81 H Pulse Oximetry 98 100 Oxygen Delivery Method 10/20/23 10:00 10/20/23 10:00 10/20/23 10:30 Temperature Pulse Rate 78 Respiratory Rate 14 Blood Pressure 164/82 H 136/78 Pulse Oximetry 100 Oxygen Delivery Method Room Air 10/20/23 10:30 Temperature Pulse Rate 74 Respiratory Rate 17 Blood Pressure Pulse Oximetry 100 Oxygen Delivery Method Room Air MDM - Abdominal Pain Lab Data 10/20/23 09:18 10/20/23 09:18 Labs: Lab Results 10/20/23 Range/Units 09:18 WBC 8.5 (4.5-11.0) X10^3/uL RBC 3.64 L (4.0-5.2) X10^6/uL Hgb 11.5 L (12.0-16.0) g/dL Hct 31.8 L (36-46) % MCV 87.4 (80-100) fL MCH 31.6 (26-34) PG MCHC 36.1 H (30-36) % RDW 13.5 (11.6-14.8) % Plt Count 212 (150-400) X10^3/uL Neut % (Auto) 86.5 H (50-75) % Lymph % (Auto) 8.5 L (25-40) % [place] % (Auto) 3.9 (3-14) % Eos % (Auto) 0.6 L (2-4) % Baso % (Auto) 0.5 (0-2) % Neut # (Auto) 7300 H (8419-2073) /uL Lymph # (Auto) 700 L (4803-7270) /uL Gladwin # (Auto) 300 (0-900) /uL Eos # (Auto) 0 (0-450) /uL Baso # (Auto) 0 (0-100) /uL Sodium 135 L (137-145) mmol/L Potassium 3.3 L (3.4-5.1) mmol/L Chloride 103 (98-107) mmol/L Carbon Dioxide 26 (22-32) mmol/L BUN 11 (7-17) mg/dL Creatinine 0.63 (0.52-1.04) mg/dL Estimated GFR > 60 (>60) mL/min BUN/Creatinine Ratio 17.5 (6-22) Glucose 115 H (80-110) mg/dL Calcium 8.9 (8.4-10.2) mg/dL Total Bilirubin 0.7 (0.2-1.3) mg/dL AST 29 (14-36) IU/L ALT 22 (<35) IU/L Alkaline Phosphatase 67 (38-126) U/L Total Protein 7.3 (6.3-8.2) g/dL Albumin 4.7 (3.5-5.0) g/dL Globulin 2.6 (1.7-4.1) g/dL Albumin/Globulin Ratio 1.8 (1.0-2.8) Lipase 132 (23-300) U/L Point of care testing: Urine Dip Bedside Urine Glucose Negative Bedside Urine Bilirubin - Negative Bedside Urine Ketone - Negative Urine Specific [place] 1.020 Bedside Urine Occult Blood - Negative Bedside Urine pH 6.0 Bedside Urine Protein - Negative Bedside Urine Urobilinogen - Negative Bedside Urine Nitrite - Negative Bedside Urine Leukocytes - Negative Esterase Imaging Data CT scan - abdomen/pelvis: Radiologist's Impression: PROCEDURE: CT KIDNEY URETER BLADDER (KUB) INDICATIONS: left flank pain TECHNIQUE: Axial sections were acquired from the lung bases to the pubic symphysis. Coronal and sagittal reformats were performed. For radiation dose reduction, the following was used: automated exposure control, adjustment of mA and/or kV according to patient size. COMPARISON: [facility], CT, CT KIDNEY URETER BLADDER (KUB), 08/08/2023, 11:52. [facility], CT, CT KIDNEY URETER BLADDER (KUB), 06/24/2022, 22:07. [facility], CT, CT KIDNEY URETER BLADDER (KUB), 09/27/2023, 13:37. FINDINGS: Image quality: Diagnostic. Lower Chest: A small hiatal hernia is incidentally noted. URINARY: Right Kidney: No stones or hydronephrosis can be seen. Right Ureter: Or No hydroureter. Left Kidney: There is a nonobstructing 2-3 mm stone within the left kidney. The left kidney appears swollen and demonstrates perinephric fat stranding. There is at least moderate left-sided hydronephrosis. Left Ureter: At least moderate left-sided hydroureter is seen. No definite obstructing stones can be seen. Numerous phleboliths can be seen adjacent to the distal left ureter, which are similar to the prior CT. Bladder: The bladder is decompressed, which limits its evaluation. No definite bladder stones are seen. ABDOMEN: Liver: No contour-deforming solid mass. A water density right liver cyst is seen. Gallbladder: No radiopaque gallstones or wall thickening. Biliary ducts: No biliary dilation. Pancreas: No ductal dilation. Spleen: Size is within normal limits. Adrenal Glands: No adrenal nodules. Stomach and Bowel: Normal colonic caliber, without significant wall thickening. Peritoneum: No abnormal intraperitoneal fluid. No free air. Ventral Wall: No hernia. Abdominal Nodes: No enlarged retroperitoneal or mesenteric lymph nodes. Vessels: Aorta and inferior vena cava are normal in size. PELVIS: Pelvic Organs: The uterus appears normal for age. No adnexal masses are seen. Pelvic Nodes: Unremarkable. Miscellaneous: No inguinal hernias are seen. Bones: Unremarkable. IMPRESSION: Obstructive findings can be seen on the left, with left-sided hydronephrosis and hydroureter and perinephric fat stranding. The left kidney appears swollen. No definite obstructing stone can be seen. Numerous phleboliths can be seen adjacent to the distal left ureter, which limit evaluation. These phleboliths appear similar to the prior CT. Please consider a recently passed stone. Additional findings: Small hiatal hernia Right liver cyst Dictated by: Live Prince M.D. on 10/20/2023 at 8:53 ECG Data Attestation: I personally reviewed and interpreted this ECG as follows: Prior ECG tracings: available for review Interpretation: Normal sinus rhythm rate 74 MS interval 122 QRS [address] changes or T- wave inversions MDM Narrative Medical decision making narrative: Patient is 58-year-old female with history of kidney stones with a known kidney stone of 2-3 mm presenting today with left-sided pain. It is feels like previous kidney stone in his confirmed by CT. She is found to have 2-3 mm nonobstructing stone on the left. She does have some mild hydro nephrosis and perinephric stranding. Blood work has been reviewed and overall reassuring no evidence of SABA urinalysis does not show any evidence of UTI. Supportive care only. She reports that Percocet has worked previously. Discharge Plan Departure Patient Disposition: Home Clinical Impression: Kidney stone on left side Instructions: DI for Kidney Stones Activity Restrictions/Additional Instructions: *You have been diagnosed with kidney stone left side *What to do: At this time be sure to stay hydrated. *Continue to take medications as directed Motrin 600 mg every 6 hours if needed for pftt-[id number] pain Percocet 1 tablet every 6 hours if needed for severe pain Zofran 4 mg every 8 hours if needed for nausea vomiting *Follow up with your primary care provider in 2-3 days or call [phone] *Return to ER if you should have increasing pain nausea vomiting fever [or] any new, worsening or concerning symptoms CONTROLLED SUBSTANCE DISCHARGE (Narcotoic/benzodiazepine/Flexeril/Phenergan) 1. You have been prescribed narcotic medications, it does have acetaminophen/Tylenol/paracetamol in it, DO NOT TAKE MORE THAN 4,00mg in 24 hours of Tylenol. TRAMADOL DOES NOT CONTAIN TYLENOL 2. Please understand that we cannot provide further refills of narcotics, benzodiazepines or controlled substances through the ED and her pain management will need to be through your provider. 3. While on these medications you cannot drive or operate heavy machinery. 4. You cannot sign legal documents or perform any duties such as this. 5. As long as you're taking opiate pain medications he should also be taking a stool softener such as Colace, Dulcolax, MiraLAX or prune juice, to help avoid constipation. Prescriptions: New oxycodone-acetaminophen [Percocet] 5-325 mg tablet 1 tab PO Q6H PRN (Reason: pain) Qty: 10 0RF ondansetron 4 mg tablet,disintegrating 4 mg PO Q8H PRN (Reason: nausea and vomiting) Qty: 10 0RF No Action estradiol [Estrace] 0.01 % (0.1 mg/gram) cream 0.5 appful vaginal DAILY Qty: 42.5 3RF Rx Instructions: Apply daily for 14 days then twice weekly for maintenance L-Glutamine 500 mg capsule 500 mg PO DAILY Saccharomyces boulardii [Daily Probiotic (S. boulardii)] 250 mg capsule 250 mg PO DAILY digestive enzymes Capsule 1 cap PO DAILY Rx Instructions: administer with food; swallow whole; do not crush/chew/dissolve/break/cut hydrocodone-acetaminophen 5-325 mg tablet 1 tab PO Q6H PRN (Reason: pain) Qty: 20 0RF tamsulosin [Flomax] 0.4 mg capsule 0.4 mg PO BEDTIME Qty: 10 0RF ondansetron 4 mg tablet,disintegrating 4 mg PO Q8H PRN (Reason: nausea and vomiting) Qty: 10 0RF ketorolac 10 mg tablet 10 mg PO TID PRN (Reason: pain) Qty: 10 0RF Referrals: Sharon Angeles MD [Primary Care Provider] - Stand Alone Forms: Patient Portal/API
[2023-10-20] MEDS: SODIUM CHLORIDE 0.9% 1,000 ML 1000 ML IV (09:28)
[2023-10-20] MEDS: ONDANSETRON 4 MG/2 ML INJ IV (09:28)
[2023-10-20] MEDS: KETOROLAC 30 MG/ML VIAL 15 MG IV (09:29)
--- NOTE | 2023-10-20 09:31 | DI.CT.S_ITS ---
PROCEDURE: CT KIDNEY URETER BLADDER (KUB) INDICATIONS: left flank pain TECHNIQUE: Axial sections were acquired from the lung bases to the pubic symphysis. Coronal and sagittal reformats were performed. For radiation dose reduction, the following was used: automated exposure control, adjustment of mA and/or kV according to patient size. COMPARISON: [facility], CT, CT KIDNEY URETER BLADDER (KUB), 08/08/2023, 11:52. [facility], CT, CT KIDNEY URETER BLADDER (KUB), 06/24/2022, 22:07. [facility], CT, CT KIDNEY URETER BLADDER (KUB), 09/27/2023, 13:37. FINDINGS: Image quality: Diagnostic. Lower Chest: A small hiatal hernia is incidentally noted. URINARY: Right Kidney: No stones or hydronephrosis can be seen. Right Ureter: Or No hydroureter. Left Kidney: There is a nonobstructing 2-3 mm stone within the left kidney. The left kidney appears swollen and demonstrates perinephric fat stranding. There is at least moderate left-sided hydronephrosis. Left Ureter: At least moderate left-sided hydroureter is seen. No definite obstructing stones can be seen. Numerous phleboliths can be seen adjacent to the distal left ureter, which are similar to the prior CT. Bladder: The bladder is decompressed, which limits its evaluation. No definite bladder stones are seen. ABDOMEN: Liver: No contour-deforming solid mass. A water density right liver cyst is seen. Gallbladder: No radiopaque gallstones or wall thickening. Biliary ducts: No biliary dilation. Pancreas: No ductal dilation. Spleen: Size is within normal limits. Adrenal Glands: No adrenal nodules. Stomach and Bowel: Normal colonic caliber, without significant wall thickening. Peritoneum: No abnormal intraperitoneal fluid. No free air. Ventral Wall: No hernia. Abdominal Nodes: No enlarged retroperitoneal or mesenteric lymph nodes. Vessels: Aorta and inferior vena cava are normal in size. PELVIS: Pelvic Organs: The uterus appears normal for age. No adnexal masses are seen. Pelvic Nodes: Unremarkable. Miscellaneous: No inguinal hernias are seen. Bones: Unremarkable. IMPRESSION: Obstructive findings can be seen on the left, with left-sided hydronephrosis and hydroureter and perinephric fat stranding. The left kidney appears swollen. No definite obstructing stone can be seen. Numerous phleboliths can be seen adjacent to the distal left ureter, which limit evaluation. These phleboliths appear similar to the prior CT. Please consider a recently passed stone. Additional findings: Small hiatal hernia Right liver cyst Dictated by: Live Prince M.D. on 10/20/2023 at 8:53 Approved by: Live Prince M.D. on 10/20/2023 at 9:00
[2023-10-20 09:32] LABS: Add Manual Diff / Slide Review NO; Basophils Absolute Auto 0 /uL (0-100); Basophils Percent Auto 0.5 % (0-2); Eosinophils Absolute Auto 0 /uL (0-450); Eosinophils Percent Auto 0.6 % (2-4); Hematocrit 31.8 % (36-46); Hemoglobin 11.5 g/dL (12.0-16.0); Lymphocytes Absolute Auto 700 /uL (1100-4500); Lymphocytes Percent Auto 8.5 % (25-40); Mean Corpuscular HGB Conc 36.1 % (30-36); Mean Corpuscular Hemoglobin 31.6 PG (26-34); Mean Corpuscular Volume 87.4 fL (80-100); Monocytes Absolute Auto 300 /uL (0-900); Monocytes Percent Auto 3.9 % (3-14); Neutrophils Absolute Auto 7300 /uL (1500-7000); Neutrophils Percent Auto 86.5 % (50-75); Platelet Count 212 X10^3/uL (150-400); Red Blood Cell Count 3.64 X10^6/uL (4.0-5.2); Red Cell Distribution Width 13.5 % (11.6-14.8); White Blood Cell Count 8.5 X10^3/uL (4.5-11.0)
[2023-10-20 09:46] LABS: Alanine Aminotransferase 22 IU/L (<35); Albumin 4.7 g/dL (3.5-5.0); Albumin Globulin Ratio 1.8 (1.0-2.8); Alkaline Phosphatase 67 U/L (38-126); Aspartate Aminotransferase 29 IU/L (14-36); BUN Creatinine Ratio 17.5 (6-22); Bilirubin Total 0.7 mg/dL (0.2-1.3); Blood Urea Nitrogen 11 mg/dL (7-17); Calcium 8.9 mg/dL (8.4-10.2); Carbon Dioxide 26 mmol/L (22-32); Chloride 103 mmol/L (98-107); Estimated Glomerular Filt Rate > 60 mL/min (>60); Globulin 2.6 g/dL (1.7-4.1); Glucose 115 mg/dL (80-110); HEMOLYSIS < 15 (0-50); Lipase 132 U/L (23-300); Potassium 3.3 mmol/L (3.4-5.1); Sodium 135 mmol/L (137-145); Total Protein 7.3 g/dL (6.3-8.2)
[2023-10-20] MEDS: HYDROMORPHONE 0.5 MG INJ IV ×2 (09:54→10:39)
== END 2023-10-20 11:06 | disposition home or self-care (01) ==
PROVIDERS: Emergency Provider Emergency Medicine; PCP Internal Medicine
DX: N20.0 Calculus of kidney (principal); I10 Essential (primary) hypertension
CPT/HCPCS: 36415; 74176; 80053; 81003; 83690; 85025; 93005; 96374; 96375; 96376; 99284; J1170; J1885; J2405

== ENCOUNTER → 2024-04-09 09:40 | Outpatient (CLI) | payer OTHER, SELFPAY ==
[2024-04-09 11:03] LABS: Add Manual Diff / Slide Review NO; Basophils Absolute Auto 0 /uL (0-100); Basophils Percent Auto 0.8 % (0-2); Eosinophils Absolute Auto 100 /uL (0-450); Eosinophils Percent Auto 2.7 % (2-4); Hematocrit 34.1 % (36-46); Hemoglobin 12.4 g/dL (12.0-16.0); Lymphocytes Absolute Auto 1000 /uL (1100-4500); Lymphocytes Percent Auto 20.1 % (25-40); Mean Corpuscular HGB Conc 36.3 % (30-36); Mean Corpuscular Hemoglobin 32.1 PG (26-34); Mean Corpuscular Volume 88.3 fL (80-100); Monocytes Absolute Auto 400 /uL (0-900); Monocytes Percent Auto 7.4 % (3-14); Neutrophils Absolute Auto 3300 /uL (1500-7000); Platelet Count 246 X10^3/uL (150-400); Red Blood Cell Count 3.86 X10^6/uL (4.0-5.2); Red Cell Distribution Width 13.6 % (11.6-14.8); White Blood Cell Count 4.8 X10^3/uL (4.5-11.0)
[2024-04-09 11:49] LABS: HEMOLYSIS < 15 (0-50)
[2024-04-09 11:56] LABS: Alanine Aminotransferase 24 IU/L (<35); Albumin 4.8 g/dL (3.5-5.0); Albumin Globulin Ratio 1.8 (1.0-2.8); Alkaline Phosphatase 67 U/L (38-126); Aspartate Aminotransferase 34 IU/L (14-36); BUN Creatinine Ratio 13.8 (6-22); Bilirubin Total 0.9 mg/dL (0.2-1.3); Blood Urea Nitrogen 9 mg/dL (7-17); Calcium 9.7 mg/dL (8.4-10.2); Carbon Dioxide 29 mmol/L (22-32); Chloride 104 mmol/L (98-107); Estimated Glomerular Filt Rate > 60 mL/min (>60); Globulin 2.6 g/dL (1.7-4.1); Glucose 93 mg/dL (80-110); HEMOLYSIS < 15 (0-50); Potassium 4.2 mmol/L (3.4-5.1); Sodium 140 mmol/L (137-145); Total Protein 7.4 g/dL (6.3-8.2)
[2024-04-09 12:30] LABS: Ferritin 50 ng/mL (11-264)
[2024-04-10 20:18] LABS: Total Iron Binding Capacity 271 ug/dL (265-497); Transferrin 216 mg/dL (206-381)
[2024-04-10 21:12] LABS: Iron 99 ug/dL (37-170); Percent Iron Saturation 37 % (15-50)
[2024-04-10 22:20] LABS: Folate 19.1 ng/mL (2.76-20.0); Vitamin B12 755 pg/mL (239-931)
== END ==
PROVIDERS: PCP Nurse Practitioner Family; Referring Provider Nurse Practitioner Family; Visit Provider Nurse Practitioner Family
DX: I10 Essential (primary) hypertension (principal); N20.0 Calculus of kidney; D64.9 Anemia, unspecified; K58.2 Mixed irritable bowel syndrome; Z87.442 Personal history of urinary calculi; Z87.898 Personal history of other specified conditions; E78.2 Mixed hyperlipidemia; N81.10 Cystocele, unspecified; N81.6 Rectocele; N95.2 Postmenopausal atrophic vaginitis
CPT/HCPCS: 36415; 80053; 82607; 82728; 82746; 83540; 83550; 84443; 85025

== ENCOUNTER → 2024-04-10 12:58 | Outpatient (CLI) | payer OTHER, SELFPAY ==
--- NOTE | 2024-04-10 13:00 | DI.MG.S_ITS ---
BILATERAL DIGITAL SCREENING MAMMOGRAM 3D/2D WITH CAD: 04/10/2024 CLINICAL: Routine screening. Family history of breast cancer. Comparison is made to exams dated: 09/25/2022 mammogram - [facility], 09/30/2021 mammogram, and 01/05/2020 mammogram - [facility]. The breasts are heterogeneously dense, which may obscure small masses (category c / 51-75% glandular tissue). Current study was also evaluated with a Computer Aided Detection (CAD) system. There is a biopsy clip in the right breast. No significant masses, calcifications, or other findings are seen in either breast. There has been no significant interval change. IMPRESSION: NEGATIVE There is no mammographic evidence of malignancy. A 1 year screening mammogram is recommended. Based on the Tyrer Cuzick model (a risk assessment model) the patient's lifetime risk is 18.2% and her 10 year risk is 7.6%. According to the ACR, ACS, and NCCN guidelines, an annual breast MRI exam along with mammogram is recommended if the patient's lifetime risk is 20% or greater. This exam was interpreted at Station ID: [id number]. NOTE: For mammograms, a report in lay terms will be sent to the patient. Approximately 15% of breast malignancies will not be visualized mammographically. In the management of a palpable breast mass, a negative mammogram must not discourage biopsy of a clinically suspicious lesion. Electronically Signed By: Gallo addison/mike:04/11/2024 08:41:21 letter sent: Normal Exam ACR BI-RADS Category 1: Negative
== END ==
LOC: MAMMO 12:59
PROVIDERS: PCP Nurse Practitioner Family; Referring Provider Internal Medicine; Visit Provider Internal Medicine
DX: Z12.31 Encounter for screening mammogram for malignant neoplasm of breast (principal); Z80.3 Family history of malignant neoplasm of breast; R92.333 Mammographic heterogeneous density, bilateral breasts
CPT/HCPCS: 77063; 77067